=== PATIENT | female | born 1950 | race Caucasian/White ===

== ENCOUNTER → 2016-03-23 | Outpatient (CLI) | payer OTHER ==
[~2016-03-23] MED LIST: ASPCH81X PO; FURO-85 PO; GLC/500 PO; LISI40TA PO
[2016-03-23 13:17] LABS: ESTIMATED AVERAGE GLUCOSE 160 mg/dl; HA1C FLAG Normal (Normal)
[2016-03-23 13:21] LABS: BLOOD UREA NITROGEN 19 mg/dl (7-18); BUN/CREATININE RATIO 21.3 (10-20); CARBON DIOXIDE 24 mmol/L (21-32); CHLORIDE 105 mmol/L (98-107); CREATININE 0.91 mg/dl (0.60-1.20); GLUCOSE 131 mg/dl (70-99); POTASSIUM 3.9 mmol/L (3.5-5.1); SODIUM 141 mmol/L (136-145)
[2016-03-23 13:25] LABS: ALT/SGPT 34 U/L (12-78); CHOLESTEROL 194 mg/dl (0-200); CHOLESTEROL/HDL RATIO 6.1; HDL CHOLESTEROL 32 mg/dl; LDL CHOLESTEROL CALCULATED 106 mg/dl; TRIGLYCERIDES 281 mg/dl (0-150); VERY LOW DENSITY LIPOPROT CALC 56 mg/dl
== END | disposition home or self-care (01) ==
LOC: C.LABMFLN 06:58
PROVIDERS: ATTEND Family Medicine
DX: E78.00 Pure hypercholesterolemia, unspecified (principal); E11.9 Type 2 diabetes mellitus without complications

== ENCOUNTER → 2017-03-20 | Outpatient (CLI) | payer OTHER ==
[2017-03-20 12:57] LABS: HEMOGLOBIN A1C 6.9 % (4.5-5.6)
[2017-03-20 13:06] LABS: ALT/SGPT 23 U/L (12-78); BLOOD UREA NITROGEN 23 mg/dl (7-18); CARBON DIOXIDE 29 mmol/L (21-32); CREATININE 0.94 mg/dl (0.60-1.20); GLUCOSE 133 mg/dl (70-99); POTASSIUM 4.2 mmol/L (3.5-5.1); SODIUM 136 mmol/L (136-145)
[2017-03-20 13:09] LABS: CHOLESTEROL 124 mg/dl (0-200); LDL CHOLESTEROL (DIRECT) 78 mg/dl
== END | disposition home or self-care (01) ==
LOC: C.LABMFLN 07:57
PROVIDERS: ATTEND Family Medicine
DX: E11.9 Type 2 diabetes mellitus without complications (principal)